=== PATIENT | female | born 1990 | race Caucasian/White ===

== ENCOUNTER 2019-12-15 18:55 | Emergency (ER) | payer OTHER ==
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
[2019-12-15 20:49] VITALS: BP 134/74
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
== END 2019-12-15 21:10 | disposition home or self-care (01) ==
LOC: ED 18:55
DX: S00.03XA Contusion of scalp, initial encounter (principal); S50.02XA Contusion of left elbow, initial encounter; S70.02XA Contusion of left hip, initial encounter; S83.91XA Sprain of unspecified site of right knee, initial encounter; V43.52XA Car driver injured in collision with other type car in traffic accident, initial encounter; W22.11XA Striking against or struck by driver side automobile airbag, initial encounter; Y92.410 Unspecified street and highway as the place of occurrence of the external cause
CPT/HCPCS: 70450; 99283; 99284

== ENCOUNTER 2023-06-16 17:15 | Outpatient (CLI) | payer BC, OTHER ==
[2023-06-17 12:53] LABS: BACTERIAL VAGINOSIS DNA NEGATIVE (NEGATIVE); CANDIDA GLABRATA DNA NEGATIVE (NEGATIVE); CANDIDA GROUP DNA POSITIVE (NEGATIVE); CANDIDA KRUSEI DNA NEGATIVE (NEGATIVE); TRICHOMONAS VAGINALIS DNA NEGATIVE (NEGATIVE)
== END 2023-06-16 17:30 | disposition home or self-care (01) ==
LOC: LAB.N 17:15
PROVIDERS: ATTEND Emergency Medicine
DX: N76.0 Acute vaginitis (principal)
CPT/HCPCS: 81514